=== PATIENT | male | born 1995 | race Caucasian/White ===

== ENCOUNTER 2017-11-21 09:42 | Emergency (ER) | payer OTHER ==
[~2017-11-21] VITALS: Ht 185.4 cm; Wt 84.1 kg
[2017-11-21 09:46] VITALS: BP 140/81; TEMP 99.4
[2017-11-21] MEDS ORDERED: ZOFRAN ODT4 MG PO (12:40)
[2017-11-21 12:48] VITALS: PULSE 111
== END 2017-11-21 12:49 | disposition home or self-care (01) ==
LOC: COL.ER 09:42
DX: J11.1 Influenza due to unidentified influenza virus with other respiratory manifestations (principal)
CPT/HCPCS: J2550; J7030